=== PATIENT | female | born 2005 | race Caucasian/White ===

== ENCOUNTER 2025-04-27 07:48 | Outpatient (CLI) | payer BC, SELFPAY ==
--- OUTSIDE RECORDS SUMMARY | 2025-04-27 07:56 | XMS_ITS | Patient Health Record ---
Author Organization [facility] OnRequest Images Address [address] [facility] [address] [place] [address] Care Team Providers Care [employer] Name Role Phone Darron Bourgeois Unavailable [phone] Rob Elizalde Unavailable [phone] Allergies No Known Allergies Results Component Value Reference Range Notes LIPID PANEL, STANDARD (7600) Reviewed date:10/21/2024 08:44:26 AM Interpretation: Performing Lab:[facility] Center[facility] [facility] Notes/Report: FASTING:YES FASTING: YES CHOLESTEROL, TOTAL 186 <200 mg/dL HDL CHOLESTEROL 61 > OR = 50 mg/dL TRIGLYCERIDES 93 <150 mg/dL LDL-CHOLESTEROL 106 Reference range: <100 Desirable range <100 mg/dL for primary prevention; <70 mg/dL for patients with CHD or diabetic patients with > or = 2 CHD risk factors. LDL-C is now calculated using the Preet-Mauro calculation, which is a validated novel method providing better accuracy than the Friedewald equation in the estimation of LDL-C. Preet GASPAR et al. JAIRO. 2013;310(19): 7216-1264 (http://education.[employer].com/faq/F AQ164) CHOL/HDLC RATIO 3.0 <5.0 (calc) NON HDL CHOLESTEROL 125 <130 mg/dL (calc) For patients with diabetes plus 1 major ASCVD risk factor, treating to a non-HDL-C goal of <100 mg/dL (LDL-C of <70 mg/dL) is considered a therapeutic option. 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 The predicted genotype is CYP2C9*1/CYP2C9*2. An individual with one copy of the CYP2C9*2 allele is expected to have lower CYP2C9 enzyme activity (levels between normal and poor metabolizer). This test cannot rule out the possibility of a rare variant not tested for by this assay which could result in a poor metabolizer (PM) phenotype. Laboratory results and submitted clinical information reviewed by Jeannie Guevara, Ph.D., [facility], [facility]. Cytochrome P450 2C9 (CYP2C9) is an important drug metabolizing enzyme which participates in the metabolism of a large number of therapeutic agents including some nonsteroidal anti-inflammatory drugs, siponimod, warfarin, phenytoin and a number of others. Both genetic and environmental factors can influence the level of CYP2C9 activity. Variants in the CYP2C9 gene that reduce the level and/or activity of the CYP2C9 enzyme may be associated with an increased risk of adverse effects for drugs that are inactivated by CYP2C9. These variants may also reduce the efficacy of prodrugs that are activated by CYP2C9. Medication response is influenced by a wide variety of factors including concurrent medication use, environmental factors such as diet, medical problems like kidney or liver disease and factors such as age and body size. Additionally, medication response can be affected by variants in other genes as well. This assay detects four variant alleles in the CYP2C9 gene ([id number]): CYP2C9*2 (c.430C>T, [id number]), CYP2C9*3 (c.1075A>C, [id number]), CYP2C9*5 (c.1080C>G, [id number]) and CYP2C9*6 (c.818delA, [id number]). CYP2C9*2 and CYP2C9*5 are decreased function alleles, and CYP2C9*3 and CYP2C9*6 are no function alleles. The normal allele is designated as CYP2C9*1. An allele is inferred to be the CYP2C9*1 allele when it is negative for the tested variants. Please note that this assay does not include the CYP2C9*8 or CYP2C9*11 alleles which are frequently observed in the population. The CYP2C9 variants described above are detected by single nucleotide primer extension after multiplex-polymerase chain reaction (PCR) amplification of specific regions of the CYP2C9 gene. Fluorescent extension products are analyzed on an automated, capillary DNA sequencer. This assay does not identify all possible variants in the CYP2C9 gene. Although rare, false positive or false negative results may occur. All results should be interpreted in the context of clinical findings, relevant history, and other laboratory data. Additional information regarding the significance of gene-drug interactions can be found in a number of places, including the package insert, FDA websites, the Clinical Pharmacogenetics Implementation Consortium (CPIC) (https://cpicpgx.org/) , as well as PharmGKB (http://www.pharmgkb.o rg) and the primary literature. Health care providers may also contact your local [facility] genetic counselor or call [phone] ([phone]) for assistance with the interpretation of these results. This test was performed pursuant to a license agreement with [employer]. This test was developed and its analytical performance characteristics have been determined by [facility]. It has not been cleared or approved by FDA. This assay has been validated pursuant to the CLIA regulations and is used for clinical purposes. A portion of the testing was performed at [facility]. Reviewed and signed by Laboratory results and submitted clinical information reviewed by Jeannie Guevara, Ph.D., DABG, CGS, Signed on 10/21/2024 at 00:37 VITAMIN D,25-OH,TOTAL,IA (17 306) Reviewed date:10/21/2024 08:43:46 AM Interpretation: Performing Lab:[facility], [facility]-Dzineu[address] Ilia Severino, [id number] Gilbert Gibbons MD Notes/Report: FASTING:YES FASTING: YES VITAMIN D,25-OH,TOTAL,IA 49 30-100 ng/mL Vitamin D Status 25-OH Vitamin D: Deficiency: <20 ng/mL Insufficiency: 20 - 29 ng/mL Optimal: > or = 30 ng/mL For 25-OH Vitamin D testing on patients on D2-supplementation and patients for whom quantitation of D2 and D3 fractions is required, the QuestAssureD(TM) 25-OH VIT D, (D2,D3), LC/MS/MS is recommended: order code 05726 (patients >2yrs). See Note 1 Note 1 For additional information, please refer to http://education.[employer].com/faq/FA Q199 (This link is being provided for informational/ educational purposes only.) HEPATIC FUNCTION PANEL (1025 6) Reviewed date:10/21/2024 08:44:05 AM Interpretation: Performing Lab:[facility], [facility] CenterSncrw42533 [address] , [facility] HospitalAjxwgpbQZ[address] [facility] Notes/Report: FASTING:YES FASTING: YES PROTEIN, TOTAL 7.2 6.1-8.1 g/dL ALBUMIN 4.3 3.6-5.1 g/dL GLOBULIN 2.9 1.9-3.7 g/dL (calc) ALBUMIN/GLOBULIN RATIO 1.5 1.0-2.5 (calc) BILIRUBIN, TOTAL 0.4 0.2-1.2 mg/dL BILIRUBIN, DIRECT 0.1 < OR = 0.2 mg/dL BILIRUBIN, INDIRECT 0.3 0.2-1.2 mg/d L (calc) ALKALINE PHOSPHATASE 78 31-125 U/L AST 16 10-30 U/L ALT 13 6-29 U/L UDT Reviewed date:09/15/2024 10:33:02 AM Interpretation: Performing Lab: Notes/Report: THC N 0 - 50 ng/ml Cocaine N 0 - 300 ng/ml Amphetamine N 0 - 1000 ng/ml Buprenorphine (BUP) N 0 - 10 ng/ml Secobarbital (Bar) N 0 - 300 ng/ml Oxazepam (BZO) P 0 - 300 ng/ml 2-xtlaievyym-4,9-qaxhfmnh-5, 3-dipheny lpyrrolidine (EDDP) N 0 - 300 ng/ml Methamphetamine (MET) N 0 - 1000 ng/ml Methylenedioxymethamphetamine (MDMA) N 0 - 500 ng/ml Morphine (MOP 300/GSQ4791) N 0 - 300 ng/ml Methadone (MTD) N 0 - 300 ng/ml Phencyclidine (PCP) N 0 - 25 ng/ml Nortriptyline (TCA) N 0 - 1000 ng/ml Oxycodone N 0 - 300 ng/ml x N 0 - 300 ng/ml VITAMIN B12 (927) Reviewed date:10/21/2024 08:44:44 AM Interpretation: Performing Lab:[facility]-Rxnmtb91778 Ilia Severino, ReprlkZS[address] Gilbert Gibbons MD Notes/Report: FASTING:YES FASTING: YES VITAMIN B12 [phone] pg/mL HEMOGLOBIN A1c (496) Reviewed date:10/21/2024 08:44:39 AM Interpretation: Performing Lab:[facility] [id number] [address] [place] [address] AnitraAyesha Gibbons Notes/Report: FASTING:YES FASTING: YES HEMOGLOBIN A1c 4.7 <5.7 % of total Hgb For the purpose of screening for the presence of diabetes: <5.7% Consistent with the absence of diabetes 5.7-6.4% Consistent with increased risk for diabetes (prediabetes) > or =6.5% Consistent with diabetes This assay result is consistent with a decreased risk of diabetes. Currently, no consensus exists regarding use of hemoglobin A1c for diagnosis of diabetes in children. According to [place] Diabetes Association (ADA) guidelines, hemoglobin A1c <7.0% represents optimal control in non- diabetic patients. Different metrics may apply to specific patient populations. Standards of Medical Care in Diabetes(ADA). CBC (H/H, RBC, INDICES, WBC, PLT) (1759) Reviewed date:10/21/2024 08:44:49 AM Interpretation: Performing Lab:[facility] [id number] [address] IamzpwkMT[address] AnitraAyesha Gibbons Notes/Report: FASTING:YES FASTING: YES WHITE BLOOD CELL COUNT 5.6 3.8-10.8 Thousand/uL RED BLOOD CELL COUNT 4.46 3.80-5.10 Million/uL HEMOGLOBIN 14.2 11.7-15.5 g/dL HEMATOCRIT 42.8 35.0-45.0 % MCV 96.0 80.0-100.0 fL MCH 31.8 27.0-33.0 pg MCHC 33.2 32.0-36.0 g/dL For adults, a slight decrease in the calculated MCHC value (in the range of 30 to 32 g/dL) is most likely not clinically significant; however, it should be interpreted with caution in correlation with other red cell parameters and the patient's clinical condition. RDW 11.8 11.0-15.0 % PLATELET COUNT 322 140-400 Thousand/uL MPV 9.3 7.5-12.5 fL COMPREHENSIVE METABOLIC PANE L (35157) Reviewed date:10/21/2024 08:44:33 AM Interpretation: Performing Lab:[facility] [place] [address] [address] MbamdoiNU[address] [facility] Notes/Report: FASTING:YES FASTING: YES GLUCOSE 81 65-99 mg/dL Fasting reference interval UREA NITROGEN (BUN) 7 7-25 mg/dL CREATININE 0.88 0.50-0.96 mg/dL EGFR 96 > OR = 60 mL/min/1.73m2 BUN/CREATININE RATIO SEE NOTE: 6-22 (calc) Not Reported: BUN and Creatinine are within reference range. SODIUM 138 135-146 mmol/L POTASSIUM 4.1 3.5-5.3 mmol/L CHLORIDE 107 98-110 mmol/L CARBON DIOXIDE 23 20-32 mmol/L CALCIUM 9.3 8.6-10.2 mg/dL PROTEIN, TOTAL 7.2 6.1-8.1 g/dL ALBUMIN 4.3 3.6-5.1 g/dL GLOBULIN 2.9 1.9-3.7 g/dL (calc) ALBUMIN/GLOBULIN RATIO 1.5 1.0-2.5 (calc) BILIRUBIN, TOTAL 0.4 0.2-1.2 mg/dL ALKALINE PHOSPHATASE 78 31-125 U/L AST 16 10-30 U/L ALT 13 6-29 U/L TSH+FREE T4 (91440) Reviewed date:10/21/2024 08:44:11 AM Interpretation: Performing Lab:[facility] [place] [address] [address] VcirvtzUD[address] [facility] Notes/Report: FASTING:YES FASTING: YES TSH 1.19 Reference Range > or = 20 Years 0.40-4.50 Ranges First trimester 0.26-2.66 Second trimester 0.55-2.73 Third trimester 0.43-2.91 T4, FREE 1.2 0.8-1.8 ng/dL Reason For Referral Reason hypersomnia, trouble staying up while driving, r/o narcolepsy, has seen neurologist in the past, advised sleep study. She did not do the study as she moved to school Please call pt to schedule appointment to see provider and Sleep study. 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 Referring Provider First Name Darron Referring Provider Last Name Christelle Referring Provider Speciality Psychiatry Referred Provider Cayla Aguirre MD Referred Provider Specialty Critical Car e (Intensivists) Referral Priority Routine Reason Spravato Diagnosis 1 Major depressive dis order, recurrent severe without psychotic features (F33.2) Referred Organization [employer] Referred Provider Darron Bourgeois Referred Address [address],[place], [place],[address], Referred Provider Specialty Psychiatry Referral Priority Routine Reason [id number] G2083- 26 units Diagnosis 1 Major depressive dis order, recurrent severe without psychotic features (F33.2) Referred Organization [facility] Referred Provider Darron Bourgeois Referred Address [address],[place], [place],[address], Referred Provider Specialty Psychiatry Referral Priority Routine Medications Medication SIG (Take, Route, Frequency, Duration) Notes Start Date End Date Status Armodafinil 200 MG Oral A ctive LORazepam 0.5 MG 0.5 tablet Oral Once a day As needed Active Vraylar 1.5 MG TAKE 1 CAPSULE BY [facility] ONCE DAILY for 90 Active Propranolol HCl 10 MG 1 tablet Oral twice a day Active Auvelity 45-105 MG 1 tablet Oral twice a day for 90 days take second dose 8hr after the first dose 02/04/2025 Active Lo Loestrin Fe 1 MG-10 MCG / 10 MCG Oral for 28 Days Active Armodafinil 200 MG 1 tablet Orally Once a day Active Escitalopram Oxalate 20 MG 1 tablet Oral Once a day Active Spravato (84 MG Dose) 28 MG/DEVICE 3 sprays in each nostril Nasally Active Social History Tobacco Use: Social History Observation Description Date Details (start date - stop date) Current Smoker NA - NA Sex Assigned At : Social History Observation Description Sex Assigned At Female Household Question Answer Notes Number of adults in household: 2 room mates Level of education: in pharmacy school at [employer] Tobacco Control (Standard) Question Answer Notes Tobacco use: Current smoker AUDIT-C (Standard) Question Answer Notes Interpretation Positive Did you have a drink contain ing alcohol in the past year? Yes How often did you have six o r more drinks on one occasion in the past year? 2 to 4 times a month (2 points) How many drinks did you have on a typical day when you were drinking in the past year? 5 or 6 drinks (2 points) How often did you have a dri nk containing alcohol in the past year? 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) Active confirmed Problem Major depression, single episode (94976447) Treatment-resi stant depression (F32.9) Active confirmed Vital Signs Heart Rate 89 /min 04/15/2025 Oximetry 99 % 04/15/2025 Blood pressure diastolic 75 mm Hg 04/15/2025 Weight-kg 68.95 kg 03/01/2025 Blood pressure systolic 123 mm Hg 04/15/2025 Weight 152 lbs 03/01/2025 Encounters Encounter Location Date Provider Diagnosis [employer], [facility] [facility] [address] [place] [address] 09/15/2024 Rob Clubb Treatment-resistant depression F32.9 ; Suicidal ideation R45.851 and DEONDRE (generalized anxiety disorder) F41.1 [employer], [facility] [facility] [facility] [address] [place] [address] 09/24/2024 Rob Clubb Treatment-resistant depression F32.9 and DEONDRE (generalized anxiety disorder) F41.1 [facility] [place] [address] 10/08/2024 Darron Christelle Treatment-resistant depression F32.9 and DEONDRE (generalized anxiety disorder) F41.1 [facility], [facility] [address] [place] [address] 10/13/2024 Darron Christelle Major depressive disorder, recurrent severe without psychotic features F33.2 [facility], [facility] [address] [place] [address] 10/15/2024 Darron Christelle Major depressive disorder, recurrent severe without psychotic features F33.2 [facility], [facility] [address] [place] [address] 10/19/2024 Darron Christelle Major depressive disorder, recurrent severe without psychotic features F33.2 [facility], [facility] [address] [place] [address] 10/21/2024 Darron Christelle Major depressive disorder, recurrent severe without psychotic features F33.2 [facility], [facility] [address] [place] [address] 10/27/2024 Darron Christelle Major depressive disorder, recurrent severe without psychotic features F33.2 [facility], [facility] [address] [place] [address] 10/29/2024 Darron Christelle Major depressive disorder, recurrent severe without psychotic features F33.2 [facility], [facility] [address] [place] [address] 11/03/2024 Darron Christelle Major depressive disorder, recurrent severe without psychotic features F33.2 [facility], [facility] [address] [place] [address] 11/09/2024 Darron Christelle DEONDRE (generalized anxiety disorder) F41.1 ; Major depressive disorder, recurrent severe without psychotic features F33.2 and Primary narcolepsy without cataplexy G47.419 [facility], [facility] [address] [place] [address] 11/13/2024 Darron Christelle Major depressive disorder, recurrent severe without psychotic features F33.2 [facility] [place], [facility] [address] [place] [address] 11/26/2024 Darron Christelle Major depressive disorder, recurrent severe without psychotic features F33.2 [facility] [place], [facility] [address] [place] [address] 12/10/2024 Darron Christelle DEONDRE (generalized anxiety disorder) F41.1 ; Major depressive disorder, recurrent severe without psychotic features F33.2 and Primary narcolepsy without cataplexy G47.419 [facility] [place], [facility] [address] [place] [address] 12/11/2024 Darron Christelle Major depressive disorder, recurrent severe without psychotic features F33.2 [facility] [place], [facility] [address] [place] [address] 12/17/2024 Darron Christelle Major depressive disorder, recurrent severe without psychotic features F33.2 [facility] [place], [facility] [address] [place] [address] 12/24/2024 Darron Christelle Major depressive disorder, recurrent severe without psychotic features F33.2 [facility] [place], [facility] [address] [place] [address] 01/04/2025 Darron Christelle Major depressive disorder, recurrent severe without psychotic features F33.2 [facility], [facility] [address] [place] [address] 01/11/2025 Rob Clubb Major depressive disorder, recurrent severe without psychotic features F33.2 ; DEONDRE (generalized anxiety disorder) F41.1 ; Suicidal ideation R45.851 and Primary narcolepsy without cataplexy G47.419 [facility] [place], [facility] [address] [place] [address] 01/14/2025 Darron Christelle Major depressive disorder, recurrent severe without psychotic features F33.2 [facility] [place], [facility] [address] [place] [address] 01/21/2025 Darron Christelle Major depressive disorder, recurrent severe without psychotic features F33.2 [facility] [place], [facility] [address] [place] [address] 01/28/2025 Darron Christelle Major depressive disorder, recurrent severe without psychotic features F33.2 [facility] [place], [facility] [address] [place] [address] 02/01/2025 Darron Christelle Encounter for screen ing for depression Z13.31 ; Encounter for screening for cardiovascular disorders Z13.6 ; Major depressive disorder, recurrent severe without psychotic features F33.2 ; DEONDRE (generalized anxiety disorder) F41.1 and Primary narcolepsy without cataplexy G47.419 [facility] [place] [address] [place] [address] 02/04/2025 Darron Christelle Major depressive disorder, recurrent severe without psychotic features F33.2 and Encounter for screening for cardiovascular disorders Z13.6 [facility] [place] [address] [place] [address] 02/11/2025 Darron Christelle Major depressive disorder, recurrent severe without psychotic features F33.2 ; Encounter for screening for cardiovascular disorders Z13.6 and Encounter for screening for depression Z13.31 [facility] [place] [address] [address] [place] [address] 02/18/2025 Darron Christelle Major depressive disorder, recurrent severe without psychotic features F33.2 and Encounter for screening for cardiovascular disorders Z13.6 [facility] [employer] [place] [address] [address] [place] [address] 02/26/2025 Darorn Christelle Major depressive disorder, recurrent severe without psychotic features F33.2 and Encounter for screening for cardiovascular disorders Z13.6 [facility] [place] [address] [place] [address] 03/01/2025 Darron Christelle Encounter for screen ing for depression Z13.31 ; Encounter for screening for cardiovascular disorders Z13.6 ; Major depressive disorder, recurrent severe without psychotic features F33.2 ; DEONDRE (generalized anxiety disorder) F41.1 and Primary narcolepsy without cataplexy G47.419 [facility] [place] [address] [place] [address] 03/04/2025 Darron Christelle Major depressive disorder, recurrent severe without psychotic features F33.2 and Encounter for screening for cardiovascular disorders Z13.6 [facility] [place] [address] [place] [address] 03/12/2025 Darron Christelle Major depressive disorder, recurrent severe without psychotic features F33.2 and Encounter for screening for cardiovascular disorders Z13.6 [facility], [facility] [address] [place] [address] 03/18/2025 Darron Christelle Major depressive disorder, recurrent severe without psychotic features F33.2 and Encounter for screening for cardiovascular disorders Z13.6 [facility], [facility] [address] [place] [address] 03/25/2025 Darron Christelle Major depressive disorder, recurrent severe without psychotic features F33.2 and Encounter for screening for cardiovascular disorders Z13.6 [facility], [facility] [address] [place] [address] 03/30/2025 Darron Christelle Major depressive disorder, recurrent severe without psychotic features F33.2 and Encounter for screening for cardiovascular disorders Z13.6 [facility], [facility] [address] [place] [address] 04/05/2025 Darron Christelle Major depressive disorder, recurrent severe without psychotic features F33.2 and Encounter for screening for cardiovascular disorders Z13.6 [facility], [facility] [address] [place] [address] 04/15/2025 Darron Christelle Major depressive disorder, recurrent severe without psychotic features F33.2 and Encounter for screening for cardiovascular disorders Z13.6 [facility], [facility] [address] [place] [address] 09/29/2024 Rob Clubb [facility], [facility] [address] [place] [address] 10/12/2024 Rob Clubb [facility], [facility] [address] [place] [address] 12/02/2024 Rob Clubb [facility], [facility] [address] [place] [address] 12/30/2024 Rob Clubb [facility], [facility] [address] [place] [address] 12/31/2024 Rob Clubb [facility], [facility] [address] [place] [address] 01/11/2025 Rob Clubb [facility], [facility] [address] [place] [address] 01/12/2025 Rob Clubb [facility], [facility] [address] [place] [address] 01/12/2025 Darron Christelle [facility] [address] [place] [address] 02/03/2025 Darron Christelle [facility] [address] [place] [address] 01/11/2025 [facility] [address] [place] [address] 01/11/2025 [facility] Assessments Encounter Date Diagnosis (ICD Code) Assessment Notes Treatment Notes Treatment Clinical Notes Section Notes 09/15/2024 Treatment-resist ant depression (ICD-10 - F32.9) 1. Major Depressive Disorder (MDD) - Continue escitalopram 20 mg daily. - Taper off venlafaxine: 37.5 mg every other day for a week. - Restart Vraylar 1.5 mg at bedtime. - Consider esketamine (Spravato) treatment if symptoms persist and insurance approves. - Increase therapy appointments to at least once every two weeks, preferably once a week. - Monitor for suicidal thoughts and develop safety plan with roommates. - Patient reports 8-year MDD history, multiple medication trials. - Recent inpatient psychiatric hospitalization on September 02. - Current suicidal thoughts with plan to overdose, but no intent. - safety plan in place. 2. Anxiety - Use lorazepam only for severe anxiety attacks. - Continue propranolol twice a day for akathisia and anxiety. - Discontinue hydroxyzine. - Patient reports panic attacks approximately every 2 months. 3. Restless Leg Syndrome - Stop ropinirole. - Restart propranolol twice a day to help with restless legs. 4. Sleep Disturbance - Discontinue trazodone. - Continue armodafinil for daytime sleepiness. - Consider sleep study and neurology consultation for possible narcolepsy. - Patient reports difficulty sleeping due to restless legs. 5. Medication Management - Monitor medication adherence and side effects. - Consider gene site testing to determine medication metabolism. - Adjust medications based on symptoms and response to treatment. - Patient reports previous trials of Prozac, Abilify, Vraylar, and Rexulti. 6. Social and Academic Stressors - Discuss possibility of medical leave of absence from school if necessary. - Maintain regular contact with family for support. - Encourage open communication with roommates regarding mental health and safety plan. - Patient is currently in pharmacy school, experiencing high stress. 7. Substance Use - Encourage cessation of smoking. - Avoid alcohol consumption while on medications. - Monitor for any changes in substance use. 8. Follow-up and Monitoring - Schedule follow-up appointment in one week. - Obtain recent blood work results from [facility]. - Order new blood tests as needed. - Coordinate with insurance for potential esketamine (Spravato) treatment. - Address any issues with Vraylar and insurance, provide samples if necessary. - Consider weekly medication dispensing if needed for safety. 09/15/2024 Suicidal ideation (ICD-10 - R45.851) Assessment and plan reviewed with patient Call for problems with medication, side effects or need for dosage change Compliance issues reviewed Discussed the risks/benefits of this medication Discussed medication side effects Return if symptoms worsen Treatment options reviewed. discussed that it can take weeks to see full therapeutic effects of psychotropic medications. discussed when to seek emergency services. discussed crisis prevention hotline 341. 1. Major Depressive Disorder (MDD) - Continue escitalopram 20 mg daily. - Taper off venlafaxine: 37.5 mg every other day for a week. - Restart Vraylar 1.5 mg at bedtime. - Consider esketamine (Spravato) treatment if symptoms persist and insurance approves. - Increase therapy appointments to at least once every two weeks, preferably once a week. - Monitor for suicidal thoughts and develop safety plan with roommates. - Patient reports 8-year MDD history, multiple medication trials. - Recent inpatient psychiatric hospitalization on September 02. - Current suicidal thoughts with plan to overdose, but no intent. - safety plan in place. 2. Anxiety - Use lorazepam only for severe anxiety attacks. - Continue propranolol twice a day for akathisia and anxiety. - Discontinue hydroxyzine. - Patient reports panic attacks approximately every 2 months. 3. Restless Leg Syndrome - Stop ropinirole. - Restart propranolol twice a day to help with restless legs. 4. Sleep Disturbance - Discontinue trazodone. - Continue armodafinil for daytime sleepiness. - Consider sleep study and neurology consultation for possible narcolepsy. - Patient reports difficulty sleeping due to restless legs. 5. Medication Management - Monitor medication adherence and side effects. - Consider gene site testing to determine medication metabolism. - Adjust medications based on symptoms and response to treatment. - Patient reports previous trials of Prozac, Abilify, Vraylar, and Rexulti. 6. Social and Academic Stressors - Discuss possibility of medical leave of absence from school if necessary. - Maintain regular contact with family for support. - Encourage open communication with roommates regarding mental health and safety plan. - Patient is currently in pharmacy school, experiencing high stress. 7. Substance Use - Encourage cessation of smoking. - Avoid alcohol consumption while on medications. - Monitor for any changes in substance use. 8. Follow-up and Monitoring - Schedule follow-up appointment in one week. - Obtain recent blood work results from [facility]. - Order new blood tests as needed. - Coordinate with insurance for potential esketamine (Spravato) treatment. - Address any issues with Vraylar and insurance, provide samples if necessary. - Consider weekly medication dispensing if needed for safety. 11/13/2024 Major depressive disorder, recurrent severe without psychotic features (ICD-10 - F33.2) 11/26/2024 Major depressive disorder, recurrent severe without psychotic features (ICD-10 - F33.2) 12/10/2024 Major depressive disorder, recurrent severe without psychotic features (ICD-10 - F33.2) Esketamine to be administered once a week with a follow-up appointment after the 8th esketamine treatment. Dosing Spravato 84 Mg Depression - Assessment: Patient reports improvement in mood, motivation, and a decrease in suicidal thoughts with Spravato (esketamine) treatment. Vega Depression Inventory score of 17, indicating mild depression. Increased motivation, including returning to school and exercising daily. No suicidal thoughts this year, with one instance in October during menstrual cycle. - Plan: - Continue Spravato treatment as scheduled. - Continue Rexulti 1.5 mg once a day and escitalopram 20 mg once a day. - Encourage patient to time esketamine treatment with therapy sessions for optimal reinforcement. 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 Using lorazepam about twice a week since school started. - Plan: - Continue propranolol 10 mg twice a day for anxiety. - Continue lorazepam as needed, refill prescription. - Monitor anxiety levels and adjust treatment as necessary. Sleep Disturbance - Assessment: Patient reports difficulty sleeping and waking up multiple times during the night. Feeling tired throughout the day. - Plan: - Continue armodafinil until sleep specialist appointment. - Sleep specialist appointment scheduled for the at [facility]. Attention and Concentration Issues - Assessment: Patient reports difficulty focusing during lectures, especially during the second hour. No known family history of ADHD or ADD. 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 - Plan: - Monitor concentration issues as depression improves. - Consider cognitive testing for ADHD if concentration issues persist. Follow-up - Plan: - Schedule a follow-up appointment with Dr. Bourgeois in 6 weeks. - Continue scheduled esketamine treatments downstairs. Counseling - Assessment: Patient is currently attending counseling every 3 weeks. - Plan: - Encourage patient to time counseling sessions with esketamine treatment for optimal reinforcement. Medication Management - Assessment: Patient has enough escitalopram and Rexulti for now. Running low on lorazepam. - Plan: - Refill lorazepam prescription. - Continue armodafinil until sleep specialist appointment. 12/10/2024 DEONDRE (generalized anxiety disorder) (ICD-10 - F41.1) Depression - Assessment: Patient reports improvement in mood, motivation, and a decrease in suicidal thoughts with Spravato (esketamine) treatment. Vega Depression Inventory score of 17, indicating mild depression. Increased motivation, including returning to school and exercising daily. No suicidal thoughts this year, with one instance in October during menstrual cycle. - Plan: - Continue Spravato treatment as scheduled. - Continue Rexulti 1.5 mg once a day and escitalopram 20 mg once a day. - Encourage patient to time esketamine treatment with therapy sessions for optimal reinforcement. 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 Using lorazepam about twice a week since school started. - Plan: - Continue propranolol 10 mg twice a day for anxiety. - Continue lorazepam as needed, refill prescription. - Monitor anxiety levels and adjust treatment as necessary. Sleep Disturbance - Assessment: Patient reports difficulty sleeping and waking up multiple times during the night. Feeling tired throughout the day. - Plan: - Continue armodafinil until sleep specialist appointment. - Sleep specialist appointment scheduled for the at [facility]. Attention and Concentration Issues - Assessment: Patient reports difficulty focusing during lectures, especially during the second hour. No known family history of ADHD or ADD. 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 - Plan: - Monitor concentration issues as depression improves. - Consider cognitive testing for ADHD if concentration issues persist. Follow-up - Plan: - Schedule a follow-up appointment with Dr. Bourgeois in 6 weeks. - Continue scheduled esketamine treatments downstairs. Counseling - Assessment: Patient is currently attending counseling every 3 weeks. - Plan: - Encourage patient to time counseling sessions with esketamine treatment for optimal reinforcement. Medication Management - Assessment: Patient has enough escitalopram and Rexulti for now. Running low on lorazepam. - Plan: - Refill lorazepam prescription. - Continue armodafinil until sleep specialist appointment. 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 Patient reports Lexapro has not made a noticeable difference. - Plan: - Continue Lexapro as prescribed - Reduce Vraylar dosage to 1.5 mg from 3 mg - Begin Spravato treatment as planned, with initial twice-weekly sessions for the first month, followed by once-weekly sessions - Reassess treatment progress in 4 weeks Anxiety - Assessment: Patient reports using propranolol for anxiety that is not at anxiety attack level - Plan: - Continue lorazepam for anxiety attacks as needed - Continue propranolol as needed for anxiety Excessive Daytime Sleepiness and Suspected Narcolepsy - Assessment: Patient reports falling asleep during class and rotations, and almost falling asleep while driving - Plan: - Discontinue Nuvigil on the day of Spravato treatment to avoid increased blood pressure - Continue armodafinil as prescribed - Referral to Dr. Cayla Aguirre for a sleep study Suicidal Ideation - Assessment: Patient reports suicidal thoughts occurring about once a month, with one close attempt in the past - Plan: - Encourage patient to maintain open communication with support system (e.g., mother, friends) - Monitor patient's mental status during follow-up visits and adjust treatment plan accordingly Medication Management - Plan: - Ensure patient has adequate supply of propranolol and escitalopram - Monitor patient's response to medication adjustments and Spravato treatment Patient Education - Plan: - Instruct patient to avoid sedating medications while driving - Discuss potential side effects of Spravato treatment, including dissociation and increased blood pressure - Emphasize the importance of not driving after Spravato treatment for the day - Informed patient about the typical course of Spravato treatment and potential side effects Follow-up - Plan: - Schedule a follow-up appointment in 4 weeks to assess treatment progress and address any concerns or questions - Patient will use Uber or have her mother drive her to Spravato treatments 10/13/2024 Major depressive disorder, recurrent severe without psychotic features (ICD-10 - F33.2) 10/15/2024 Major depressive disorder, recurrent severe without psychotic features (ICD-10 - F33.2) 10/19/2024 Major depressive disorder, recurrent severe without psychotic features (ICD-10 - F33.2) 10/21/2024 Major depressive disorder, recurrent severe without psychotic features (ICD-10 - F33.2) 10/27/2024 Major depressive disorder, recurrent severe without psychotic features (ICD-10 - F33.2) 10/29/2024 Major depressive disorder, recurrent severe without psychotic features (ICD-10 - F33.2) 11/03/2024 Major depressive disorder, recurrent severe without psychotic features (ICD-10 - F33.2) 11/09/2024 Major depressive disorder, recurrent severe without psychotic features (ICD-10 - F33.2) Esketamine to be administered once a week with a follow-up appointment after the 8th esketamine treatment. Dosing Spravato 84 Mg f Major Depressive Disorder (MDD) with Premenstrual Dysphoric Disorder (PMDD) - Assessment: Improvement in overall mood with the addition of esketamine (Spravato). PHQ-9 score decreased from 23 to 5, indicating significant improvement. Vega Depression Inventory score of 20, indicating mild depression. - Plan: - Monitor the impact of Spravato on PMDD over two cycles. - Continue current medications: Vraylar 1.5 mg, escitalopram 20 mg, armodafinil 200 mg, lorazepam 0.5 mg, and Spravato twice a week. - If PMDD symptoms persist, consider increasing escitalopram to 30 mg during the last 3-4 days of the cycle. - Once stable, discuss reducing medications. Anxiety - Plan: - Continue propranolol 10 mg twice a day and lorazepam as needed (approximately 10 times a month). Suspected Narcolepsy - Assessment: Patient reports excessive daytime sleepiness and fatigue. - Plan: - Continue armodafinil 200 mg for suspected narcolepsy. - Patient to pursue a sleep study for definitive diagnosis. Routine Laboratory Results - Assessment: Cholesterol, liver function, metabolic panel, Vitamin D, LDL cholesterol ratio, Hemoglobin A1C, and Vitamin B12 all normal. - Plan: - No further action needed. Prescriptions - Plan: - Send prescriptions for Vraylar, escitalopram, armodafinil, lorazepam, and Spravato as discussed during the visit. - Vraylar prescription to be sent for 30 days. 11/09/2024 DEONDRE (generalized anxiety disorder) (ICD-10 - F41.1) Major Depressive Disorder (MDD) with Premenstrual Dysphoric Disorder (PMDD) - Assessment: Improvement in overall mood with the addition of esketamine (Spravato). PHQ-9 score decreased from 23 to 5, indicating significant improvement. Vega Depression Inventory score of 20, indicating mild depression. - Plan: - Monitor the impact of Spravato on PMDD over two cycles. - Continue current medications: Vraylar 1.5 mg, escitalopram 20 mg, armodafinil 200 mg, lorazepam 0.5 mg, and Spravato twice a week. - If PMDD symptoms persist, consider increasing escitalopram to 30 mg during the last 3-4 days of the cycle. - Once stable, discuss reducing medications. Anxiety - Plan: - Continue propranolol 10 mg twice a day and lorazepam as needed (approximately 10 times a month). Suspected Narcolepsy - Assessment: Patient reports excessive daytime sleepiness and fatigue. - Plan: - Continue armodafinil 200 mg for suspected narcolepsy. - Patient to pursue a sleep study for definitive diagnosis. Routine Laboratory Results - Assessment: Cholesterol, liver function, metabolic panel, Vitamin D, LDL cholesterol ratio, Hemoglobin A1C, and Vitamin B12 all normal. - Plan: - No further action needed. Prescriptions - Plan: - Send prescriptions for Vraylar, escitalopram, armodafinil, lorazepam, and Spravato as discussed during the visit. - Vraylar prescription to be sent for 30 days. 12/11/2024 Major depressive disorder, recurrent severe without psychotic features (ICD-10 - F33.2) 12/17/2024 Major depressive disorder, recurrent severe without psychotic features (ICD-10 - F33.2) 12/24/2024 Major depressive disorder, recurrent severe without psychotic features (ICD-10 - F33.2) 01/04/2025 Major depressive disorder, recurrent severe without psychotic features (ICD-10 - F33.2) 01/11/2025 Major depressive disorder, recurrent severe without psychotic features (ICD-10 - F33.2) Electronic Prior Authorization was requested for Spravato (84 MG Dose) 28 MG/DEVICE Solution Therapy Pack. Provider can order medication once approval received. 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 discussed that it can take weeks to see full therapeutic effects of psychotropic medications. discussed when to seek emergency services. discussed crisis prevention hotline 988. 1. Anxiety and Panic Attacks - Decrease in panic attack frequency, but three major ones last week. - Propranolol 10 mg twice daily as needed for anxiety management. - Lorazepam taken during recent panic attacks. - Current anxiety rated 5/10. - Plan: a. Continue propranolol as needed for anxiety. b. Encourage lorazepam use during panic attacks, with caution about side effects. 2. Depression - Depression rated 30/10. - Anhedonia, flat affect, and difficulty with daily activities persist. - Suicidal thoughts resolved. - PHQ score decreased from 23 to 18. - DEONDRE score decreased from 14 to 12. - Plan: a. Increase Vraylar to 3 mg at bedtime. b. Continue escitalopram 20 mg; refill 90-day supply. c. Monitor for improvement in depressive symptoms. d. Consider esketamine (Spravato) treatment if insurance-approve d. e. Refer to Dr. Bourgeois for TMS evaluation. 3. Insomnia - Recent shift from hypersomnia to insomnia over past week. - Possible association with Effexor withdrawal. - Plan: a. Recommend OTC sleep aids: melatonin and magnesium. 4. Restless Leg Syndrome - No current symptoms; patient believes venlafaxine may have caused it. - Plan: Monitor for any recurrence. 5. Cytochrome P450 Testing - No previous testing. - Plan: Perform gene site mouth swab test to assess medication metabolism. 6. Therapy - Currently attending therapy sessions with [facility]. - Plan: Encourage continued engagement in therapy. 7. Medication Changes - Off Effexor for 5 days. - Previously tried Rexulti with negative effects; consider listing as allergy. 8. Follow-up - Schedule follow-up in two weeks to assess response to increased Vraylar dosage and discuss cytochrome P450 test results. - Coordinate with insurance for esketamine approval and schedule treatment as appropriate. - Schedule 40-minute appointment with Dr. Bourgeois for TMS evaluation. - Patient to prepare condensed timeline of medication history and effects for Dr. Bourgeois appointment. 02/01/2025 Encounter for screening for depression (ICD-10 - Z13.31) 02/04/2025 Major depressive disorder, recurrent severe without psychotic features (ICD-10 - F33.2) 02/11/2025 Major depressive disorder, recurrent severe without psychotic features (ICD-10 - F33.2) 02/18/2025 Major depressive disorder, recurrent severe without psychotic features (ICD-10 - F33.2) 02/26/2025 Major depressive disorder, recurrent severe without psychotic features (ICD-10 - F33.2) 03/01/2025 Encounter for screening for depression (ICD-10 - Z13.31) 03/04/2025 Major depressive disorder, recurrent severe without psychotic features (ICD-10 - F33.2) 03/12/2025 Major depressive disorder, recurrent severe without psychotic features (ICD-10 - F33.2) 03/18/2025 Major depressive disorder, recurrent severe without psychotic features (ICD-10 - F33.2) 03/25/2025 Major depressive disorder, recurrent severe without psychotic features (ICD-10 - F33.2) 03/30/2025 Major depressive disorder, recurrent severe without psychotic features (ICD-10 - F33.2) 04/05/2025 Major depressive disorder, recurrent severe without psychotic features (ICD-10 - F33.2) 04/15/2025 Major depressive disorder, recurrent severe without psychotic features (ICD-10 - F33.2) 04/15/2025 Encounter for screening for cardiovascular disorders (ICD-10 - Z13.6) 04/05/2025 Encounter for screening for cardiovascular disorders (ICD-10 - Z13.6) 03/30/2025 Encounter for screening for cardiovascular disorders (ICD-10 - Z13.6) 03/25/2025 Encounter for screening for cardiovascular disorders (ICD-10 - Z13.6) 03/18/2025 Encounter for screening for cardiovascular disorders (ICD-10 - Z13.6) 03/12/2025 Encounter for screening for cardiovascular disorders (ICD-10 - Z13.6) 03/04/2025 Encounter for screening for cardiovascular disorders (ICD-10 - Z13.6) 02/01/2025 Encounter for screening for cardiovascular disorders (ICD-10 - Z13.6) 03/01/2025 Encounter for screening for cardiovascular disorders (ICD-10 - Z13.6) 02/26/2025 Encounter for screening for cardiovascular disorders (ICD-10 - Z13.6) 02/18/2025 Encounter for screening for cardiovascular disorders (ICD-10 - Z13.6) 02/11/2025 Encounter for screening for cardiovascular disorders (ICD-10 - Z13.6) 02/04/2025 Encounter for screening for cardiovascular disorders (ICD-10 - Z13.6) 10/08/2024 DEONDRE (generalized anxiety disorder) (ICD-10 - F41.1) SPRAVATO is contraindicated in patients with: Aneurysmal vascular disease (including thoracic and abdominal aorta, intracranial and peripheral arterial vessels) or arteriovenous malformation No History of intracerebral hemorrhage No Hypersensitivity to Esketamine, ketamine, or any of the ingredients No UNCONTROLLED HYPERTENSION No Hypertension is not an absolute contraindication Major Depressive Disorder - Assessment: Patient reports depression symptoms since age 12, including lack of interest, excessive sleep (8-10 hours), fatigue, and difficulty concentrating. Patient reports Lexapro has not made a noticeable difference. - Plan: - Continue Lexapro as prescribed - Reduce Vraylar dosage to 1.5 mg from 3 mg - Begin Spravato treatment as planned, with initial twice-weekly sessions for the first month, followed by once-weekly sessions - Reassess treatment progress in 4 weeks Anxiety - Assessment: Patient reports using propranolol for anxiety that is not at anxiety attack level - Plan: - Continue lorazepam for anxiety attacks as needed - Continue propranolol as needed for anxiety Excessive Daytime Sleepiness and Suspected Narcolepsy - Assessment: Patient reports falling asleep during class and rotations, and almost falling asleep while driving - Plan: - Discontinue Nuvigil on the day of Spravato treatment to avoid increased blood pressure - Continue armodafinil as prescribed - Referral to Dr. Cayla Aguirre for a sleep study Suicidal Ideation - Assessment: Patient reports suicidal thoughts occurring about once a month, with one close attempt in the past - Plan: - Encourage patient to maintain open communication with support system (e.g., mother, friends) - Monitor patient's mental status during follow-up visits and adjust treatment plan accordingly Medication Management - Plan: - Ensure patient has adequate supply of propranolol and escitalopram - Monitor patient's response to medication adjustments and Spravato treatment Patient Education - Plan: - Instruct patient to avoid sedating medications while driving - Discuss potential side effects of Spravato treatment, including dissociation and increased blood pressure - Emphasize the importance of not driving after Spravato treatment for the day - Informed patient about the typical course of Spravato treatment and potential side effects Follow-up - Plan: - Schedule a follow-up appointment in 4 weeks to assess treatment progress and address any concerns or questions - Patient will use Uber or have her mother drive her to Spravato treatments 01/11/2025 Suicidal ideation (ICD-10 - R45.851) 09/15/2024 DEONDRE (generalized anxiety disorder) (ICD-10 - F41.1) 1. Major Depressive Disorder (MDD) - Continue escitalopram 20 mg daily. - Taper off venlafaxine: 37.5 mg every other day for a week. - Restart Vraylar 1.5 mg at bedtime. - Consider esketamine (Spravato) treatment if symptoms persist and insurance approves. - Increase therapy appointments to at least once every two weeks, preferably once a week. - Monitor for suicidal thoughts and develop safety plan with roommates. - Patient reports 8-year MDD history, multiple medication trials. - Recent inpatient psychiatric hospitalization on September 02. - Current suicidal thoughts with plan to overdose, but no intent. - safety plan in place. 2. Anxiety - Use lorazepam only for severe anxiety attacks. - Continue propranolol twice a day for akathisia and anxiety. - Discontinue hydroxyzine. - Patient reports panic attacks approximately every 2 months. 3. Restless Leg Syndrome - Stop ropinirole. - Restart propranolol twice a day to help with restless legs. 4. Sleep Disturbance - Discontinue trazodone. - Continue armodafinil for daytime sleepiness. - Consider sleep study and neurology consultation for possible narcolepsy. - Patient reports difficulty sleeping due to restless legs. 5. Medication Management - Monitor medication adherence and side effects. - Consider gene site testing to determine medication metabolism. - Adjust medications based on symptoms and response to treatment. - Patient reports previous trials of Prozac, Abilify, Vraylar, and Rexulti. 6. Social and Academic Stressors - Discuss possibility of medical leave of absence from school if necessary. - Maintain regular contact with family for support. - Encourage open communication with roommates regarding mental health and safety plan. - Patient is currently in pharmacy school, experiencing high stress. 7. Substance Use - Encourage cessation of smoking. - Avoid alcohol consumption while on medications. - Monitor for any changes in substance use. 8. Follow-up and Monitoring - Schedule follow-up appointment in one week. - Obtain recent blood work results from [facility]. - Order new blood tests as needed. - Coordinate with insurance for potential esketamine (Spravato) treatment. - Address any issues with Vraylar and insurance, provide samples if necessary. - Consider weekly medication dispensing if needed for safety. 09/24/2024 DEONDRE (generalized anxiety disorder) (ICD-10 - F41.1) 1. Anxiety and Panic Attacks - Decrease in panic attack frequency, but three major ones last week. - Propranolol 10 mg twice daily as needed for anxiety management. - Lorazepam taken during recent panic attacks. - Current anxiety rated 5/10. - Plan: a. Continue propranolol as needed for anxiety. b. Encourage lorazepam use during panic attacks, with caution about side effects. 2. Depression - Depression rated 30/10. - Anhedonia, flat affect, and difficulty with daily activities persist. - Suicidal thoughts resolved. - PHQ score decreased from 23 to 18. - DEONDRE score decreased from 14 to 12. - Plan: a. Increase Vraylar to 3 mg at bedtime. b. Continue escitalopram 20 mg; refill 90-day supply. c. Monitor for improvement in depressive symptoms. d. Consider esketamine (Spravato) treatment if insurance-approve d. e. Refer to Dr. Bourgeois for TMS evaluation. 3. Insomnia - Recent shift from hypersomnia to insomnia over past week. - Possible association with Effexor withdrawal. - Plan: a. Recommend OTC sleep aids: melatonin and magnesium. 4. Restless Leg Syndrome - No current symptoms; patient believes venlafaxine may have caused it. - Plan: Monitor for any recurrence. 5. Cytochrome P450 Testing - No previous testing. - Plan: Perform gene site mouth swab test to assess medication metabolism. 6. Therapy - Currently attending therapy sessions with [facility]. - Plan: Encourage continued engagement in therapy. 7. Medication Changes - Off Effexor for 5 days. - Previously tried Rexulti with negative effects; consider listing as allergy. 8. Follow-up - Schedule follow-up in two weeks to assess response to increased Vraylar dosage and discuss cytochrome P450 test results. - Coordinate with insurance for esketamine approval and schedule treatment as appropriate. - Schedule 40-minute appointment with Dr. Bourgeois for TMS evaluation. - Patient to prepare condensed timeline of medication history and effects for Dr. Bourgeois appointment. 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 Provider can order medication once approval received. 02/11/2025 Encounter for screening for depression (ICD-10 - Z13.31) 03/01/2025 Major depressive disorder, recurrent severe without psychotic features (ICD-10 - F33.2) Electronic Prior Authorization was requested for Auvelity 45-105 MG Tablet Extended Release. Provider can order medication once approval received. 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 Vega Depression Inventory score of 17, indicating mild depression. Increased motivation, including returning to school and exercising daily. No suicidal thoughts this year, with one instance in October during menstrual cycle. - Plan: - Continue Spravato treatment as scheduled. - Continue Rexulti 1.5 mg once a day and escitalopram 20 mg once a day. - Encourage patient to time esketamine treatment with therapy sessions for optimal reinforcement. 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 Using lorazepam about twice a week since school started. - Plan: - Continue propranolol 10 mg twice a day for anxiety. - Continue lorazepam as needed, refill prescription. - Monitor anxiety levels and adjust treatment as necessary. Sleep Disturbance - Assessment: Patient reports difficulty sleeping and waking up multiple times during the night. Feeling tired throughout the day. - Plan: - Continue armodafinil until sleep specialist appointment. - Sleep specialist appointment scheduled for the [facility]. Attention and Concentration Issues - Assessment: Patient reports difficulty focusing during lectures, especially during the second hour. No known family history of ADHD or ADD. 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 - Plan: - Monitor concentration issues as depression improves. - Consider cognitive testing for ADHD if concentration issues persist. Follow-up - Plan: - Schedule a follow-up appointment with Dr. Bourgeois in 6 weeks. - Continue scheduled esketamine treatments downstairs. Counseling - Assessment: Patient is currently attending counseling every 3 weeks. - Plan: - Encourage patient to time counseling sessions with esketamine treatment for optimal reinforcement. Medication Management - Assessment: Patient has enough escitalopram and Rexulti for now. Running low on lorazepam. - Plan: - Refill lorazepam prescription. - Continue armodafinil until sleep specialist appointment. 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 PHQ-9 score decreased from 23 to 5, indicating significant improvement. Vega Depression Inventory score of 20, indicating mild depression. - Plan: - Monitor the impact of Spravato on PMDD over two cycles. - Continue current medications: Vraylar 1.5 mg, escitalopram 20 mg, armodafinil 200 mg, lorazepam 0.5 mg, and Spravato twice a week. - If PMDD symptoms persist, consider increasing escitalopram to 30 mg during the last 3-4 days of the cycle. - Once stable, discuss reducing medications. Anxiety - Plan: - Continue propranolol 10 mg twice a day and lorazepam as needed (approximately 10 times a month). Suspected Narcolepsy - Assessment: Patient reports excessive daytime sleepiness and fatigue. - Plan: - Continue armodafinil 200 mg for suspected narcolepsy. - Patient to pursue a sleep study for definitive diagnosis. Routine Laboratory Results - Assessment: Cholesterol, liver function, metabolic panel, Vitamin D, LDL cholesterol ratio, Hemoglobin A1C, and Vitamin B12 all normal. - Plan: - No further action needed. Prescriptions - Plan: - Send prescriptions for Vraylar, escitalopram, armodafinil, lorazepam, and Spravato as discussed during the visit. - Vraylar prescription to be sent for 30 days. 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 Major Depressive Disorder (MDD) - Continue escitalopram 20 mg daily. - Taper off venlafaxine: 37.5 mg every other day for a week. - Restart Vraylar 1.5 mg at bedtime. - Consider esketamine (Spravato) treatment if symptoms persist and insurance approves. - Increase therapy appointments to at least once every two weeks, preferably once a week. - Monitor for suicidal thoughts and develop safety plan with roommates. - Patient reports 8-year MDD history, multiple medication trials. - Recent inpatient psychiatric hospitalization on September 02. - Current suicidal thoughts with plan to overdose, but no intent. - safety plan in place. 2. Anxiety - Use lorazepam only for severe anxiety attacks. - Continue propranolol twice a day for akathisia and anxiety. - Discontinue hydroxyzine. - Patient reports panic attacks approximately every 2 months. 3. Restless Leg Syndrome - Stop ropinirole. - Restart propranolol twice a day to help with restless legs. 4. Sleep Disturbance - Discontinue trazodone. - Continue armodafinil for daytime sleepiness. - Consider sleep study and neurology consultation for possible narcolepsy. - Patient reports difficulty sleeping due to restless legs. 5. Medication Management - Monitor medication adherence and side effects. - Consider gene site testing to determine medication metabolism. - Adjust medications based on symptoms and response to treatment. - Patient reports previous trials of Prozac, Abilify, Vraylar, and Rexulti. 6. Social and Academic Stressors - Discuss possibility of medical leave of absence from school if necessary. - Maintain regular contact with family for support. - Encourage open communication with roommates regarding mental health and safety plan. - Patient is currently in pharmacy school, experiencing high stress. 7. Substance Use - Encourage cessation of smoking. - Avoid alcohol consumption while on medications. - Monitor for any changes in substance use. 8. Follow-up and Monitoring - Schedule follow-up appointment in one week. - Obtain recent blood work results from [facility]. - Order new blood tests as needed. - Coordinate with insurance for potential esketamine (Spravato) treatment. - Address any issues with Vraylar and insurance, provide samples if necessary. - Consider weekly medication dispensing if needed for safety. 09/24/2024 Other esketamine paperwork initiated. 1. Anxiety and Panic Attacks - Decrease in panic attack frequency, but three major ones last week. - Propranolol 10 mg twice daily as needed for anxiety management. - Lorazepam taken during recent panic attacks. - Current anxiety rated 5/10. - Plan: a. Continue propranolol as needed for anxiety. b. Encourage lorazepam use during panic attacks, with caution about side effects. 2. Depression - Depression rated 30/10. - Anhedonia, flat affect, and difficulty with daily activities persist. - Suicidal thoughts resolved. - PHQ score decreased from 23 to 18. - DEONDRE score decreased from 14 to 12. - Plan: a. Increase Vraylar to 3 mg at bedtime. b. Continue escitalopram 20 mg; refill 90-day supply. c. Monitor for improvement in depressive symptoms. d. Consider esketamine (Spravato) treatment if insurance-approve d. e. Refer to Dr. Bourgeois for TMS evaluation. 3. Insomnia - Recent shift from hypersomnia to insomnia over past week. - Possible association with Effexor withdrawal. - Plan: a. Recommend OTC sleep aids: melatonin and magnesium. 4. Restless Leg Syndrome - No current symptoms; patient believes venlafaxine may have caused it. - Plan: Monitor for any recurrence. 5. Cytochrome P450 Testing - No previous testing. - Plan: Perform gene site mouth swab test to assess medication metabolism. 6. Therapy - Currently attending therapy sessions with [facility]. - Plan: Encourage continued engagement in therapy. 7. Medication Changes - Off Effexor for 5 days. - Previously tried Rexulti with negative effects; consider listing as allergy. 8. Follow-up - Schedule follow-up in two weeks to assess response to increased Vraylar dosage and discuss cytochrome P450 test results. - Coordinate with insurance for esketamine approval and schedule treatment as appropriate. - Schedule 40-minute appointment with Dr. Bourgeois for TMS evaluation. - Patient to prepare condensed timeline of medication history and effects for Dr. Bourgeois appointment. 01/11/2025 Other If you are planning on becoming , notify your health care provider so that he/she can best manage your medications. People living with bipolar disorder who wish to become face important decisions. It is important to discuss the risks and benefits of treatment with your doctor and caregivers. [place] has been associated with an increased risk of Ebstein's anomaly, a heart valve defect. Even though data suggest that the risk of Ebstein's anomaly from first trimester use of lithium is very low, an ultrasound of the heart is recommended at 16 to 20 weeks of gestation. Belgrade levels should be monitored monthly in early and weekly near delivery. Do not stop taking lithium without first speaking to your health care provider. Discontinuing mood stabilizer medications during has been associated with a significant increase in symptom relapse. If an overdose occurs call your doctor or 911. You may need urgent medical care. You may also contact the poison control center at . A specific treatment to reverse the effects of lithium does not exist, but there are treatments to decrease the effects of the medication. Only a doctor can determine if you require treatment. Avoid drinking alcohol or using illegal drugs while you are taking lithium. They may decrease the benefits (e.g., worsen your condition) and increase adverse effects (e.g., sedation) of the medication. Avoid low sodium diets and dehydration because this can increase the risk of lithium toxicity. Avoid over the counter and prescription pain medications that contain nonsteroidal anti-inflammat ory medications (NSAIDS) such as ibuprofen (Motrin, Advil) or naproxen (Aleve, Naprosyn) because these medications can increase the risk of toxicity from lithium. Avoid excessive intake of caffeinated beverages, such as coffee, tea, cola or energy drinks, since these may decrease levels of lithium and decrease effectiveness of the medication. Discontinuing caffeine use may increase lithium levels. Consult your health care provider before reducing or stopping caffeine use. What are the possible side effects of lithium? Common side effects Headache Nausea or vomiting Diarrhea Dizziness or drowsiness Changes in appetite Hand tremors Dry mouth Increased thirst Increased urination Thinning of hair or hair loss Acne-like rash Rare/Serious side effects Signs of lithium toxicity include severe nausea and vomiting, severe hand tremors, confusion, vision changes, and unsteadiness while standing or walking. These symptoms need to be addressed immediately with a medical doctor to ensure your lithium level is not dangerously high. In rare cases, lithium may lead to a reversible condition known as diabetes insipidus. If this occurs you would notice a significant increase in thirst and how much fluid you drink and how much you urinate. Talk to your doctor if you notice you are urinating more frequently than usual. Are There Any Risks For Taking Belgrade For Long Periods Of Time? Hypothyroidism (low levels of thyroid hormone) may occur with long-term lithium use. Rare kidney problems have been associated with long-term use of lithium. The risk increases with high levels of lithium. Your doctor will monitor your kidney function at routine check-ups to ensure this does not occur. Summary of Black Box Warnings Belgrade Toxicity Belgrade toxicity is closely related to lithium blood levels and can occur at doses close to therapeutic levels; lithium levels should be monitored closely when starting the medication or if individuals experience side effects of the medication. 1. Major Depressive Disorder - BDI: 29 - Patient reports worsening depression for past 2 weeks. - She feels her body gets used to medications quickly, reducing effectiveness. - Spravato treatment inconsistent due to insurance [place]. - She is concerned about long-term use of ketamine-based treatments. - She experienced suicidal thoughts last week, but talked herself out of it. - Plan: a. Start lithium 150 mg at night as adjunct therapy. b. Monitor for side effects (frequent urination, dehydration, vision changes). c. Encourage hydration, avoid alcohol and marijuana. d. Provide 7-day supply of lithium e. Increase therapy frequency if possible. f. Follow up in a week. 2. Anxiety - DEONDRE-7: 11 - Patient rates anxiety as 7/10. - Plan: a. Continue current medications as prescribed by primary psychiatric care provider. b. Encourage discussion of anxiety management strategies with therapist. 3. Sleep Disturbance - Patient reports oversleeping (8-12 hours per night). - Plan: a. Monitor sleep patterns. b. Discuss sleep hygiene with patient. c. Encourage consistent sleep schedule and relaxing bedtime routine. 4. Medication Management - Patient needs refills for Vraylar and Lexapro. - Plan: a. Refill Vraylar and Lexapro prescriptions. b. Send in 7 days of lithium 5. Insurance and Prior Authorization Issues - Disruptions in Spravato treatment due to insurance coverage and prior authorization. - Plan: a. Communicate primary psychiatric care provider regarding treatment plan and adjustments. 6. Suicidal Ideation - Patient reported suicidal thoughts last week, no current plan. - Plan: a. Assess suicide risk regularly. b. Provide crisis hotline information (247). c. Encourage patient to reach out to support system and therapist if experiencing suicidal thoughts. d. Monitor response to lithium and other medications for changes in suicidal ideation. E. Limit access to medications. Reduce risk by environmental changes. Encouraged to live with family. F. Patient aware of suicide hotline. Safety plan in place. Patient aware of when to seek emergency services. 02/01/2025 Other Major Depressive Disorder with Suicidal Ideation - Assessment: Patient reports worsening depressive symptoms over the past 2 months, including the return of suicidal ideation. She experienced suicidal thoughts twice in the past week, with one episode lasting about 2 hours on Saturday, accompanied by chest pain and feelings of misery. The patient denies any specific triggers or stressors. She has an extensive history of treatment-resist ant depression, having tried multiple antidepressants and antipsychotics in the past. Current treatment includes Spravato (esketamine) 84 mg once weekly, armodafinil 200 mg, cariprazine 1.5 mg, escitalopram 20 mg, lorazepam, and propranolol. The patient has not tried duloxetine and is considering adding it to her regimen. - Plan: - Continue current medication regimen: Spravato 84 mg once weekly, armodafinil 200 mg daily, cariprazine 1.5 mg daily, escitalopram 20 mg daily, lorazepam (dose not specified), and propranolol (dose not specified) - Initiate prior authorization for Rexulti (brexpiprazole) - If Rexulti is not approved, consider adding bupropion (dose not specified) - Follow up in 4 weeks - Advised patient that I will contact her regarding the outcome of the prior authorization and any resulting medication changes Sleep Disorder - Assessment: Patient reports frequent nighttime awakenings (approximately 5 times per night) but is able to fall back asleep quickly. She is currently prescribed armodafinil 200 mg daily by [facility]. An insurance-approv ed sleep study is pending scheduling. - Plan: - Continue armodafinil 200 mg daily - Await results of pending sleep study 03/01/2025 Mirtha Guo is a patient with a history of depression and anxiety who has shown improvement in mood and reduction in suicidal thoughts with current treatment regimen. Major Depressive Disorder Assessment: Patient reports improvement in mood and reduction in suicidal thoughts with current treatment regimen. PHQ-9 score has decreased to 6, and Vega Depression Inventory score is now 15, both indicating mild depression. This represents a 1-2 point reduction in scores, suggesting progress towards remission. Patient is currently on Spravato 84 mg weekly, Vraylar 1.5 mg, and Auvelity (dosage not specified). Patient notes feeling more here and with it and not experiencing depression every day. Plan: - Continue Spravato 84 mg weekly, with option to extend to every 10 days if improvement maintains - Continue Vraylar 1.5 mg (frequency not specified) - Continue Auvelity, one tablet twice daily, approximately 6-8 hours apart - Provided copay card for Auvelity to reduce cost - Follow up in 2 months Anxiety Disorder Assessment: Patient continues to experience occasional panic attacks, managed with as-needed lorazepam. Plan: - Continue lorazepam 0.5 mg once daily as needed for panic attacks Sleep Disturbance Assessment: Patient reports difficulty falling asleep, possibly related to the stimulating effects of bupropion (component of Auvelity) when taken later in the day. Plan: - Adjust timing of evening Auvelity dose to earlier if possible, maintaining at least 6 hours between doses Disclaimer: This note has been transcribed using speech recognition software and serves as a reflection of the patient's visit. While efforts have been made to ensure accuracy, there may be errors, including cable installation manager inaccuracies and misspellings of medication names. This document should not be considered a verbatim record, and any discrepancies should be verified with the provider. Plan Of Treatment Pending Test Test Name Order Date Vitamin D, 1,25 Dihydroxy 09/15/2024 Cytochrome P450 2C19 09/15/2024 Cytochrome P450 2C19 09/24/2024 Liver Function Test (LFT) 09/15/2024 Next Appt Details Provider Name:Darron Hewittam , 04/29/2025 01:00:00 PM, [address], [address] [place], [address], Provider Name:Darron Bethea Christelle , 05/06/2025 01:00:00 PM, [address], [address], [place], [address], Provider Name:Darron Hewittam , 05/13/2025 01:00:00 PM, [address], [place], [address], Provider Name:Darron Hewittam , 05/14/2025 02:15:00 PM, [address], [place], [address], Provider Name:Darron Hewittam , 05/20/2025 01:00:00 PM, [address], [place], [address], Insurance Providers Payer Name Payer Address Payer Phone Subscriber Number Group Number Insured Name Patient Relationship to Insured Coverage Start Date Coverage End Date [facility] [address] [place] [address] [id number] KARLO FRYE Self - patient is the insured Medications Administered Medication Instructions Date of Administration Dosage Notes Spravato (56 MG Dose) 10/13/2024 56 mg Spravato (84 MG Dose) 10/15/2024 84 mg Spravato (84 MG Dose) 10/19/2024 84 mg Spravato (84 MG Dose) 10/21/2024 84 mg Spravato (84 MG Dose) 10/27/2024 84 mg Spravato (84 MG Dose) 10/29/2024 84 mg Spravato (84 MG Dose) 11/03/2024 84 mg Spravato (84 MG Dose) 11/13/2024 84 mg Spravato (84 MG Dose) 11/26/2024 84 mg Spravato (84 MG Dose) 12/11/2024 84 mg Spravato (84 MG Dose) 12/17/2024 84 mg Spravato (84 MG Dose) 12/24/2024 84 mg Spravato (84 MG Dose) 01/04/2025 84 mg Spravato (84 MG Dose) 01/14/2025 84 mg Spravato (84 MG Dose) 01/21/2025 84 mg Spravato (84 MG Dose) 01/28/2025 84 mg Spravato (84 MG Dose) 02/04/2025 84 mg Spravato (84 MG Dose) 02/11/2025 84 mg Spravato (84 MG Dose) 02/18/2025 84 mg Spravato (84 MG Dose) 02/26/2025 84 mg Spravato (84 MG Dose) 03/04/2025 84 mg Spravato (84 MG Dose) 03/12/2025 84 mg Spravato (84 MG Dose) 03/18/2025 84 mg Spravato (84 MG Dose) 03/25/2025 84 mg Spravato (84 MG Dose) 03/30/2025 84 mg Spravato (84 MG Dose) 04/05/2025 84 mg Spravato (84 MG Dose) 04/15/2025 84 mg Medical (General) History Medical History History ICD Code Past Psychiatric History: Anxiety Disord er,Major Depressive Episode abdominal aortic aneurysm: No atrial fibrillation: No chronic fatigue syndrome: No essential tremor: No hyperlipidemia: No hypertension: No Parkinson's disease: No restless leg syndrome: Yes stroke: No subdural hematoma: No type 1 diabetes mellitus: No type 2 diabetes mellitus: No vitamin B12 deficiency: No vitamin D deficiency: No Hospitalization History Reason Date(Month/Year) [facility] suicidal [facility] 11/26 022 [facility]- suicidal [facility] 08/2024
--- OUTSIDE RECORDS SUMMARY | 2025-04-27 07:56 | XMS_ITS | Patient Health Record ---
Author Organization [facility] Address [address] [place] [address] [address] [place] [address] Support Name Relationship Address Phone Alla Guo Emergency Contact [address] [place] [address] Alla Guo Guarantor Unknown [phone] Allergies No Known Allergies Reason For Referral No Information Medications Medication SIG (Take, Route, Frequency, Duration) Notes Start Date End Date Status Cephalexin 500 MG 1 tablet Orally bid for 10 days 05/30/2023 Active Ciprodex 0.3-0.1 % 4 drops into affected ear Otic Twice a day for 7 days 06/06/2015 Not-Taking Cortisporin 3.5-01258-4 4 drops into affected ear Otic Three times a day for 7 days 06/06/2015 Not-Taking Gianvi 3-0.02 MG 1 tablet Orally Once a day Not-Taking Ibuprofen 200 MG 1 tablet as needed Orally every 6 hrs Not-Taking Lexapro 10 MG 1 tablet oral At bedtime Not-Taking Lexapro 10 MG 1 tablet Orally Daily Active Swimmers Ear Drops 95 % Otic Not-Taking BuSpar 5 mg Twice daily Active Tamiflu 75 mg 1 capsule Orally Twice a day for 5 day(s) 12/12/2017 Not-Taking Lo Loestrin Fe 1 MG-10 MCG / 10 MCG 1 tablet oral Daily Ac tive Wellbutrin 75 mg TID Not-Takin g Phentermine HCl 37.5 MG 1 Tablet oral Daily Active Zithromax Z-Charles 250 MG as directed Orally Daily for 5 days 03/24/2020 Not-Taking Vraylar 1.5 MG 1 capsule Orally every other day Active Amoxicillin 500 MG 1 tablet Orally Twice a day for 10 days 03/04/2023 Not-Taking Immunizations Vaccine Route Administration Date Status Comme nts Non VFC Boostrix Unknown 05/14/2014 Administered Non VFC Engerix B-Peds Unknown 2003 Administered Status:Complete d Non VFC Engerix B-Peds Unknown 2003 Administered Status:Complete d Non VFC Engerix B-Peds Unknown 2003 Administered Status:Complete d Non VFC Engerix-B Adult IM Intramuscular 05/23/2023 Administered Non VFC Havrix-Peds IM Intramuscular 04/23/2017 Administer ed Non VFC Havrix-Peds IM Intramuscular 04/23/2019 Administer ed Non VFC IPV Unknown 07/25/2008 Administered Non VFC Menactra Unknown 05/14/2014 Administered Non VFC Menactra IM Intramuscular 04/23/2019 Administered Non-VFC MMR II Unknown 11/09/2004 Administered Status:C omplete d Pneumococcal conjugate PCV 7 Unknown 2003 Administered Status:Complete d Pneumococcal conjugate PCV 7 Unknown 2003 Administered Status:Complete d Pneumococcal conjugate PCV 7 Unknown 2003 Administered Status:Complete d Pneumococcal conjugate PCV 7 Unknown 11/09/2004 Administered Status:Complete d VFC Daptacel Unknown 2003 Administered Status:Com plete d VFC Daptacel Unknown 2003 Administered Status:Com plete d VFC Daptacel Unknown 2003 Administered Status:Com plete d VFC Daptacel Unknown 08/03/2004 Administered Status:Com plete d VFC Infanrix Unknown 07/25/2008 Administered VFC IPV Unknown 2003 Administered Status:Compl ete d VFC IPV Unknown 2003 Administered Status:Compl ete d VFC IPV Unknown 08/03/2004 Administered Status:Compl ete d VFC Proquad Unknown 07/25/2008 Administered VFC Varivax Unknown 03/17/2004 Administered Status:Comp lete d X Hiberix Unknown 2003 Administered Status:Compl ete d X Hiberix Unknown 2003 Administered Status:Compl ete d X Hiberix Unknown 2003 Administered Status:Compl ete d X Hiberix Unknown 08/03/2004 Administered Status:Compl ete d Social History Tobacco Use: Social History Observation Description Date Details (start date - stop date) Never Smoker NA - NA Tobacco Use/Smoking Question Answer Notes Are you a nonsmoker Alcohol Screen (Audit-C) Question Answer Notes Did you have a drink containing alcohol in the p ast year? No Points 0 Interpretation Negative DAST Question Answer Notes Total Score: 0 Interpretation: No problems reported Problems Problem Type SNOMED Code ICD Code Onset Dates Problem Status W/U Status Risk Notes Problem [id number] Depression, unspecified depression type (F32.9) Active confirmed Plan Of Treatment No Information Insurance Providers Payer Name Payer Address Payer Phone Subscriber Number Group Number Insured Name Patient Relationship to Insured Coverage Start Date Coverage End Date BCBS [facility] [address] [place] [address] [id number] Alla Valdez ch Child - Insured has Financial Responsibility 8 Dental [facility] [address] [place], [place] [id number] Alla Valdez ch Child - Insured has Financial Responsibility 8 Medical (General) History Surgical History Surgery Date(Month/Year)
--- OUTSIDE RECORDS SUMMARY | 2025-04-27 07:56 | XMS_ITS | Clinical Summary ---
Author Organization [facility] Address [address] [place] [address] Care Team Providers Care Insulation Board Back Tender Name Role Phone Donnie Sherman MD Primary Care Provider [phone] Allergies No known active allergies Medications NORGESTIMATE-ETH INYL ESTRADIOL (TRI-LINYAH ORAL) Take by mouth. Active ETHINYL ESTRADIOL/DROSPI RENONE (HODAN, 28, ORAL) Take by mouth. Active escitalopram (LEXAPRO) 10 mg tablet Take 10 mg by mouth daily Active buPROPion XL (Wellbutrin XL) 150 mg 24 hr tablet Take 150 mg by mouth daily Active norethindrone-e. estradiol-iron (LO LOESTRIN FE ORAL) Take by mouth Active Active Problems Problem Noted Date Diagnosed Date COVID-19 12/11/2021 Social History Tobacco Use Types Packs/Day Years Used Date Smoking Tobacco: Never Smokeless Tobacco: Never Alcohol Use Standard Drinks/Week Comments Yes 7 (1 standard drink = 0.6 oz pur e alcohol) yesterday Comments Unknown Sex and Gender Information Value Date Recorded Sex Assigned at Not on file Legal Sex Female 9:28 PM CDT Gender Identity Not on file Sexual Orientation Not on file Last Filed Vital Signs Vital Sign Reading Time Taken Comments Blood Pressure 131/82 12/12/2021 11:14 PM BROADCAST PRODUCER Pulse 83 12/12/2021 11:14 PM BROADCAST PRODUCER Temperature 36.8 C (98.3 F) 12/12/2021 11:14 PM BROADCAST PRODUCER Respiratory Rate 18 12/12/2021 11:14 PM BROADCAST PRODUCER Oxygen Saturation 99% 12/12/2021 11:14 PM BROADCAST PRODUCER Inhaled Oxygen Concentration - - Weight 77 kg (169 lb 12.1 oz) 12/11/2021 7:37 PM BROADCAST PRODUCER Height 160 cm (5' 3) 12/11/2021 7:37 PM BROADCAST PRODUCER Body Mass Index 30.07 12/11/2021 7:37 PM BROADCAST PRODUCER Plan of Treatment Health Maintenance Due Date Last Done Comments Pap Smear 2003 HPV Vaccines (1 - 3-dose series) 2018 Meningococcal B Vaccine (1 of 2 - Standard) 05/21/2019 04/23/2019, 05/14/2014 DTaP,Tdap,and Td Vaccines (7 - Td or Tdap) 05/14/2024 05/14/2014, 04/26/2014, 07/25/2008, Additional history exists COVID-19 Vaccine ( - season) 2024 09/30/2021, 08/19/2021 Influenza Vaccine (Season Ended) 2025 RSV Vaccines and 60 Years or Older (1 - 1-dose 75+ series) 2078 Hepatitis B Vaccines Completed 2003, 2003, 2003, Additional history exists HIB Vaccines Completed 08/03/2004, 04/2003, 2003, Additional history exists AMB Pneumococcal 0-49 yrs Aged Out 2003, 2003, 2003, Additional history exists No longer eligible based on patient's age to complete this topic IPV Vaccines Completed 07/25/2008, 11/2007, 08/03/2004, Additional history exists MMR Vaccines Completed 07/25/2008, 11/2007, 11/09/2004 Varicella Vaccines Completed 07/25/2008, 0 06/25/2008, 03/17/2004 Hepatitis A Vaccines Completed 04/23/2019, 04/23/20 17 Meningococcal ACWY Vaccine Completed 04/23/2019, RSV Vaccines <20 Months Aged Out No l onger eligible based on patient's age to complete this topic Insurance BLUE CROSS BLUE CROSS Care Teams Insulation Board Back Tender Relationship Specialty Start Date End Date Donnie Sherman MD [address] [address] PCP - General Vba Programmer 09/08/17
--- NOTE | 2025-05-20 12:47 | P.SLEEP_ITS ---
Sleep Study Date of Study: 04/27/25 Ordering Provider: BOB Naik Interpreting Physician: Khalida Choe DO Sleep Study Type: Polysomnogram Height: 1.57 m Weight: 63.503 kg Body Mass Index: 25.6 Neck Circumference (inches): 13 [place]: 16 Reason for Sleep Study Daytime hypersomnia Sleep History The patient is a 20-year-old female that had a sleep study ordered by the Pulmonary group for evaluation of excessive daytime sleepiness. The patient denies awakening from sleep short of breath. She denies awakening at night with heartburn, belching or cough. She occasionally snores but is never loud enough that others complain. She denies having trouble sleeping when she has a cold. She denies waking up gasping for air throughout the night. He denies having breathing problems at night observed by herself or others. She rarely sweats excessively at night. She denies having heart palpitations or irregular heartbeats during the night. She frequently falls asleep during the day and occasionally while driving. She denies sleep paralysis and cataplexy. She constantly has trouble at school or work due to sleepiness. He constantly experiences vivid dreamlike scenes upon awakening or falling asleep. She denies feeling afraid of going to sleep. She occasionally has nightmares. She frequently remembers her dreams. She frequently has thoughts racing through her mind. She occasionally feels sad, depressed and anxious. She denies having muscular tension. She occasionally notices parts of her body jerk. She denies kicking during the night. She denies having crawling and aching feelings in her legs and denies having leg pain during the night. She denies grinding her teeth during sleep and denies awakening with morning jaw pain. She denies being bothered by pain during the day and denies being awakened by pain during the night. She denies waking up feeling stiff in the morning. She rarely wakes up with sore or achy muscles. She denies waking up with pain in the neck, spine and other joints. She goes to bed at 10:00 p.m. on weekdays and between 11:00 p.m. to midnight on the weekends. It takes her 15 minutes to fall asleep. She wakes up 1-2 times throughout the night for unknown reasons. It typically takes her 5 minutes to fall back asleep. She wakes up at 8:00 a.m. on weekdays and 10:00 a.m. on the weekends. She typically gets 7-8 hours of sleep per night. She will stay in bed for 15 minutes after waking up in the morning. She currently lives with 2 roommates. She denies consuming any caffeinated beverages within 2 hours of bedtime. She denies engaging in physical exercise before bedtime. She denies reading or watching television before falling asleep. She will take naps in afternoon or the evening but they are not refreshing. She consumes a caffeinated beverage once per week. The patient consumes an alcoholic beverage once per week. She quit smoking cigarettes 1 month ago. She denies recreational use. [facility] Past Medical History Medical History Suicidal ideation Treatment-resistant depression Restless leg syndrome Major depression, single episode Anxiety disorder Social History Social History Smoking packs per day: 1 Smoking cigarettes per day: 20.0 Smoking status: Current every day smoker (vaping) Alcohol intake: current Drinks per week: 2 Substance use type: does not use Current Housing: I Have Housing Education: High School Diploma/GED Living arrangements: with roommate(s) Occupation/Education: student Medications Home Medications ?Medication ?Instructions ?Recorded ?Confirmed ?Type cariprazine 1.5 mg capsule 1.5 mg PO DAILY 12/17/24 12/21/24 History (Vraylar) lorazepam 0.5 mg tablet 0.5 mg PO DAILY PRN 12/17/24 12/21/24 History norethindrone 1 mg-ethinyl 1 tablet PO DAILY 12/17/24 12/21/24 History estradiol 10 mcg (24)-iron 10 mcg(2) tablet (Lo Loestrin Fe) propranolol 10 mg tablet 10 mg PO Q12H 12/17/24 12/21/24 History escitalopram oxalate 20 mg tablet 10 mg PO DAILY 12/21/24 12/21/24 History modafinil 100 mg tablet See Rx Instructions PO QAM #90 tabs 12/21/24 12/21/24 Rx Sleep Procedure A full night polysomnogram using the [employer] SleepSpace Pencil multi-channel system recorded the standard physiologic parameters including EEG, EOG, submentalis EMG, anterior tibialis EMG, EKG, body position, nasal and oral airflow using nasal pressure sensor and thermistor.? Respiratory parameters of chest and abdominal movements were recorded with Respiratory Inductance Plethysmography belts. Oxygen saturation was recorded by pulse oximetry. Video monitoring was also performed. Sleep stages, periodic limb movements, and EEG arousals were scored in 30 second epochs according to the criteria of the AASM Scoring Manual. The Apnea-Hypopnea Index was calculated using [facility] guidelines for definition of hypopnea with 4% O2 desaturations while scoring respiratory events. Sleep Architecture The total recording time was 454.3 minutes.? The total sleep time was 376.0 minutes. Sleep latency was 16.9 minutes. REM latency was 265.0 minutes. Sleep efficiency was 82.8%. The patient had 47 awakenings for an awakening index of 7.5. Wake after sleep onset time was 61.0 minutes. The patient spent 44.5 minutes, 11.8% of total sleep time in Stage N1. The patient spent 202.0 minutes, 53.7% in Stage N2. The patient spent 86.5 minutes, 23.0% in Stage N3. The patient spent 43.0 minutes, 11.4% in Stage REM sleep. Respiratory Analysis The patient had 1 mixed apnea for an overall Apnea Hypopnea Index of 0.2. The REM Apnea Hypopnea Index was 1.4. The NREM Apnea Hypopnea Index was 0. The patient had a Central Apnea Hypopnea Index of 0. There was no evidence of Marvin-Gaona Respirations. Arousals There were 188 total arousals for an arousal index of 30.0. There were 123 spontaneous arousals for an index of 19.6. There were 0 arousals due to respiratory events for an index of 0. There were 25 arousals due to periodic limb movements for an index of 4.0.? There were 36 arousals due to isolated limb movements for an index of 5.7. Periodic Limb Movements The patient had 78 isolated limb movements with an index of 12.4. The patient had 42 periodic limb movements with an index of 6.7. Patient had a total of 120 limb movements with a total limb movement index of 19.1. Oximetry Data The patient had an average oxygen saturation of 97.8% in sleep with a minimum oxygen saturation of 94.0% and a maximum oxygen saturation of 99.0%. The patient had 2 oxygen desaturations that were 4% or greater resulting in an Oxygen Desaturation Index of 0.2.? The patient spent 0 minutes of total sleep time with an oxygen saturation below 88%. Snoring Profile Mild snoring was present intermittently throughout the study. Cardiac Profile The EKG showed normal sinus rhythm. The patient had an average pulse rate of 72.4 bpm with a minimum pulse of rate of 25.0 bpm and a maximum pulse rate of 105.0 bpm.? EEG Profile No signs of seizure activity seen. Assessment and Plan Assessment and Plan (1) Excessive daytime sleepiness: Code(s): G47.19 - Other hypersomnia Status: Acute Assessment and Plan: The patient had an overall AHI of 0.2 with desaturation down to 94%. This is not consistent with sleep-disordered breathing. The patient had a sleep latency of 16.9 minutes and a REM latency of 265 minutes. No SOREMs were seen during this study. Please see MSLT report. Data The data obtained during this sleep study is adequate for interpretation. Certification This sleep study has been reviewed by a board certified sleep medicine physician.
[2025-05-24 13:02] VITALS: BMI 25.6
[2025-05-24 13:27] VITALS: BMI 25.6
--- NOTE | 2025-05-24 13:27 | P.SLEEP_ITS ---
Sleep Study Date of Study: 04/27/25 Ordering Provider: BOB Naik Interpreting Physician: Khalida Choe DO Sleep Study Type: Multiple Sleep Latency Test Height: 1.57 m Weight: 63.503 kg Body Mass Index: 25.6 Neck Circumference (inches): 13 [place]: 16 Reason for Sleep Study Excessive daytime sleepiness Sleep History Please see sleep history on PSG report from the previous night. [facility] Past Medical History Medical History Suicidal ideation Treatment-resistant depression Restless leg syndrome Major depression, single episode Anxiety disorder Social History Social History Smoking packs per day: 1 Smoking cigarettes per day: 20.0 Smoking status: Current every day smoker (vaping) Alcohol intake: current Drinks per week: 2 Substance use type: does not use Current Housing: I Have Housing Education: High School Diploma/GED Living arrangements: with roommate(s) Occupation/Education: student Medications Home Medications ?Medication ?Instructions ?Recorded ?Confirmed ?Type cariprazine 1.5 mg capsule 1.5 mg PO DAILY 12/17/24 12/21/24 History (Vraylar) lorazepam 0.5 mg tablet 0.5 mg PO DAILY PRN 12/17/24 12/21/24 History norethindrone 1 mg-ethinyl 1 tablet PO DAILY 12/17/24 12/21/24 History estradiol 10 mcg (24)-iron 10 mcg(2) tablet (Lo Loestrin Fe) propranolol 10 mg tablet 10 mg PO Q12H 12/17/24 12/21/24 History escitalopram oxalate 20 mg tablet 10 mg PO DAILY 12/21/24 12/21/24 History modafinil 100 mg tablet See Rx Instructions PO QAM #90 tabs 12/21/24 12/21/24 Rx Sleep Procedure The recording montage for the MSLT includes frontal (F3-M2 or F4-M1), central (C3-M2 or C4-M1), occipital (O1-M2 or O2-M1) derivations, left and right eye EOGs, mental/submental EMG, and EKG.? Sleep Architecture Nap Summary: Nap trials started at 07:23:51 AM following an overnight polysomnogram that ended at 05:47:03 with an overall Apnea Hypopnea index of 0.2 events per hour. Sleep onset REM (SOREM) did not occur during the overnight polysomnogram. Nap 1 commenced at 07:23:51 AM. Sleep latency was 2.5 minutes. REM sleep did not occur. Total sleep time was 15.5 minutes. Nap was terminated at 07:42:03 AM. The patient reported that sleep may have occurred. The patient reported that dreaming did not occur. Nap 2 commenced at 09:22:10 AM. Sleep latency was 2.7 minutes. REM sleep occurred. REM latency was 12 minutes. Total sleep time was 13.5 minutes. Nap was terminated at 09:40:20 AM. The patient reported that sleep may have occurred. The patient reported that dreaming did not occur. Nap 3 commenced at 11:22:26 AM. Sleep latency was 3.9 minutes. REM sleep did not occur. Total sleep time was 10.5 minutes. Nap was terminated at 11:41:37 AM. The patient reported that sleep did not occur. The patient reported that dreaming did not occur. Nap 4 commenced at 01:22:00 PM. Sleep latency was 2.3 minutes. REM sleep did not occur. Total sleep time was 13.4 minutes. Nap was terminated at 01:39:42 PM. The patient reported that sleep occurred. The patient reported that dreaming did not occur. Nap 5 commenced at 03:21:51 PM. Sleep latency was 9.0 minutes. REM sleep did not occur. Total sleep time was 3.05 minutes. Nap was terminated at 03:46:09 PM. The patient reported that sleep did not occur. The patient reported that dreaming did not occur. The patient achieved sleep in 5 of 5 nap opportunities. The overall average sleep latency was 4.1 minutes. The patient achieved REM sleep (SOREM) in 1 of 5 naps. The overall average REM latency was 12 minutes. Respiratory Analysis N/A Arousals N/A Periodic Limb Movements N/A Oximetry Data N/A Snoring Profile N/A Cardiac Profile N/A EEG Profile EEG was normal and showed no signs of seizure activity. Assessment and Plan Assessment and Plan (1) Excessive daytime sleepiness: Code(s): G47.19 - Other hypersomnia Status: Acute Assessment and Plan: The patient achieved sleep in 5 of 5 nap opportunities. The overall average sleep latency was 4.1 minutes. The patient achieved REM sleep (SOREM) in 1 of 5 naps. The overall average REM latency was 12 minutes. The patient did not have a SOREM present on the polysomnogram from the night prior. The patient did not meet criteria for narcolepsy. Please see polysomnogram report. Data The data obtained during this sleep study is adequate for interpretation. Certification This sleep study has been reviewed by a board certified sleep medicine physician.
== END 2025-04-28 16:01 | disposition home or self-care (01) ==
LOC: ANHCSM 07:53
PROVIDERS: Visit Provider Physician Assistant
DX: G47.10 Hypersomnia, unspecified (principal); G47.19 Other hypersomnia
CPT/HCPCS: 95805; 95810